=== PATIENT | female | born 1965 | race Caucasian/White ===

== ENCOUNTER 2018-11-07 07:41 | Emergency (ER) | payer OTHER ==
[~2018-11-07] VITALS: Ht 162.6 cm; Wt 61.2 kg
[2018-11-07 08:00] VITALS: BP 122/72
[2018-11-07] MEDS ORDERED: DIPHTH,PERTUSS(ACELL),TET TOX 0.5 ML DISP.SYRIN. VAX IM ONE (08:30)
[2018-11-07] MEDS ORDERED: LIDOCAINE WITH 8.4% SOD BICARB 3 ML DISP.SYRIN. INJ ONE (08:30)
--- NOTE | 2018-11-07 09:00 | RAD ---
CT of the head without contrast, 11/07/2018: HISTORY: Fall, facial injury The ventricles are within normal limits in size. There is no shift of the midline structures. There is no evidence of acute intracranial hemorrhage or mass effect. IMPRESSION: No acute intracranial abnormality is detected. CT of the facial bones without contrast, 11/07/2018: Noncontrast scans were obtained with multiplanar reconstructions produced. No fracture is identified. There is nearly complete opacification of both maxillary sinuses. There is mucosal thickening and fluid in the left sphenoid sinus. There is mild mucosal thickening in both ethmoid sinuses. The findings are presumably on an inflammatory basis. The orbital contents are unremarkable. IMPRESSION: 1. No acute bony abnormality is detected. 2. Paranasal sinusitis with greatest involvement of both maxillary sinuses. PQRS Compliance Statement: One or more of the following individualized dose reduction techniques were utilized for this examination: 1. Automated exposure control 2. Adjustment of the mA and/or kV according to patient size 3. Use of iterative reconstruction technique Electronically signed by: Kane Mena MD (11/07/2018 8:57 AM) [facility]
--- NOTE | 2018-11-07 09:12 | PHYS DOC ---
Past Medical History Past Medical History: No Pertinent History Past Surgical History: No Surgical History Alcohol Use: Rarely Drug Use: None Adult General Chief Complaint Chief Complaint: LACERATION/AVULSION HPI HPI Patient is a 53 year old female who presents with lower lip laceration. Patient was walking on ice, she slipped and fell planting her face on the ground. Patient denies any loss of consciousness. Denies any neck pain. Denies any loose teeth. Review of Systems Review of Systems Constitutional: Denies fever or chills [] Eyes: Denies change in visual acuity, redness, or eye pain [] HENT: Reports lower lip laceration. Denies nasal congestion or sore throat [] Respiratory: Denies cough or shortness of breath [] Cardiovascular: No additional information not addressed in HPI [] GI: Denies abdominal pain, nausea, vomiting, bloody stools or diarrhea [] : Denies dysuria or hematuria [] Musculoskeletal: Denies back pain or joint pain [] Integument: See HENT Neurologic: Denies headache, focal weakness or sensory changes [] All other systems were reviewed and found to be within normal limits, except as documented in this note. Current Medications Current Medications Current Medications Medications (Trade) Dose Ordered Sig/Sid Start Time Stop Time Status Last Admin Dose Admin Diphtheria/ Tetanus/Acell Pertussis (Boostrix) 0.5 ml ONCE ONCE 11/07/18 08:30 11/07/18 08:31 DC 11/07/18 08:36 0.5 ML Lidocaine/Sodium Bicarbonate (Buffered Lidocaine 1%) 3 ml 1X ONCE 11/07/18 08:30 11/07/18 08:31 DC 11/07/18 08:35 3 ML Allergies Allergies Allergies Coded Allergies Type Severity Reaction Last Updated Verified No Known Drug Allergies 11/07/18 No Physical Exam Physical Exam Constitutional: Well developed, well nourished, no acute distress, non-toxic appearance. [] HENT: Normocephalic, atraumatic, bilateral external ears normal, oropharynx moist, no oral exudates, nose normal. Lower left inner lip with a laceration approximately 2 cm long. The laceration is not cutting through. There are no loose teeth. Eyes: PERRLA, EOMI, conjunctiva normal, no discharge. [] Neck: Normal range of motion, no tenderness, supple, no stridor. [] Cardiovascular:Heart rate regular rhythm, no murmur [] Lungs & Thorax: Bilateral breath sounds clear to auscultation [] Abdomen: Bowel sounds normal, soft, no tenderness, no masses, no pulsatile masses. [] Skin: see HENT Back: No tenderness, no CVA tenderness. [] Extremities: No tenderness, no cyanosis, no clubbing, ROM intact, no edema. [] Neurologic: Alert and oriented X 3, normal motor function, normal sensory function, no focal deficits noted. Cranial nerves II-XII intact Psychologic: Affect normal, judgement normal, mood normal. [] Current Patient Data Vital Signs Vital Signs Date Time Temp Pulse Resp B/P (MAP) Pulse Ox O2 Delivery O2 Flow Rate FiO2 11/07/18 08:00 98.3 78 16 122/72 (89) 96 Room Air 98.3 EKG EKG [] Radiology/Procedures Radiology/Procedures []PROCEDURE: CT HEAD AND MAXILLOFACIAL WO CT of the head without contrast, 11/07/2018: HISTORY: Fall, facial injury The ventricles are within normal limits in size. There is no shift of the midline structures. There is no evidence of acute intracranial hemorrhage or mass effect. IMPRESSION: No acute intracranial abnormality is detected. CT of the facial bones without contrast, 11/07/2018: Noncontrast scans were obtained with multiplanar reconstructions produced. No fracture is identified. There is nearly complete opacification of both maxillary sinuses. There is mucosal thickening and fluid in the left sphenoid sinus. There is mild mucosal thickening in both ethmoid sinuses. The findings are presumably on an inflammatory basis. The orbital contents are unremarkable. IMPRESSION: 1. No acute bony abnormality is detected. 2. Paranasal sinusitis with greatest involvement of both maxillary sinuses. PQRS Compliance Statement: One or more of the following individualized dose reduction techniques were utilized for this examination: 1. Automated exposure control 2. Adjustment of the mA and/or kV according to patient size 3. Use of iterative reconstruction technique Electronically signed by: Kane Mena MD (11/07/2018 8:57 AM) [facility] DICTATED and SIGNED BY: KANE MENA MD DATE: 11/07/18 0849 Laceration/Wound Repair Wound Location: Left lower inner lip Wound's Depth, Shape: Vertical Wound Length (cm): Approximately 2 cm Wound Explored: clean Irrigated w/ Saline (ccs): Yes Betadine Prep?: Yes Anesthesia: 1% buffered lidocaine Volume Anesthetic (ccs): Approximately 1.5 mL Wound Repaired With: Vicryl Suture Size/Type: 3/interrupted sutures Number of Sutures: 3 Progress : Wound was left open to air, patient provided an ice pack Course & Med Decision Making Course & Med Decision Making Pertinent Labs and Imaging studies reviewed. (See chart for details) This is a 53-year-old female patient who presents to the ED today with lower lip laceration status post falling. No loss of consciousness CT of the head and facial bones are negative for any acute findings. Tetanus given in the ED. Laceration closed by me as noted in procedures. Wound care instructions and return precautions provided. Ice pack provided in the Ed. Dragon Disclaimer Dragon Disclaimer This electronic medical record was generated, in whole or in part, using a voice recognition dictation system. Departure Departure Impression: Primary Impression: Fall from standing Additional Impression: Lip laceration Disposition: HOME, SELF-CARE Condition: STABLE Referrals: ROLO GTZ MD (PCP) Follow-up with your doctor as needed Patient Instructions: Fall Prevention and Home Safety, Mouth Laceration, Easy- to-Read Additional Instructions: You were evaluated in the emergency room after falling. Your laceration was closed with dissolvable sutures. Try to ice and elevate the area for the next 24 hours. Keep the laceration site clean. Follow-up with your doctor as needed. Come back to the ED or see your doctor at any point you develop signs of infection including but not limited to increased redness, warmth to the area, yellow drainage from the area. Problem Qualifiers Primary Impression: Fall from standing Encounter type: initial encounter Qualified Codes: W19.XXXA - Unspecified fall, initial encounter Additional Impression: Lip laceration Encounter type: initial encounter Qualified Codes: S01.511A - Laceration without foreign body of lip, initial encounter JAMAAL WALTERS APRN Nov 07, 2018 09:12
== END 2018-11-07 09:16 | disposition home or self-care (01) ==
LOC: ER 07:41
DX: S01.511A Laceration without foreign body of lip, initial encounter (principal); W00.2XXA Other fall from one level to another due to ice and snow, initial encounter; Y93.01 Activity, walking, marching and hiking; Y92.89 Other specified places as the place of occurrence of the external cause; Y99.8 Other external cause status
CPT/HCPCS: 12011; 70450; 70486; 90471; 90715; 99284-25